=== PATIENT | male | born 1980 | race Caucasian/White ===

== ENCOUNTER 2019-10-20 11:53 | Emergency (ER) | payer MEDICAID ==
[~2019-10-20] VITALS: Ht 172.7 cm; Wt 94.8 kg
[2019-10-20 11:56] VITALS: Ht 172.7 cm; Wt 94.8 kg
[2019-10-20 14:18] VITALS: BP 159/98
== END 2019-10-20 14:18 | disposition home or self-care (01) ==
LOC: ED 11:53
DX: K52.9 Noninfective gastroenteritis and colitis, unspecified (principal)
CPT/HCPCS: 87804; J1885; J7030

== ENCOUNTER 2019-12-04 10:50 | Emergency (ER) | payer MEDICAID ==
[~2019-12-04] VITALS: Ht 172.7 cm; Wt 96.6 kg
[2019-12-04 11:01] VITALS: Ht 172.7 cm; Wt 96.6 kg
[2019-12-04 11:59] LABS: BASOPHIL % 0.8 % (0-2); PLATELET COUNT 245 x10^3mcL (130-400); RED CELL DISTRIBUTION WIDTH 13.4 % (11.5-14.5)
[2019-12-04 12:27] LABS: AMPHETAMINE QUAL UR NONE DETECTED (See below)
[2019-12-04 12:50] LABS: CALCIUM 8.9 mg/dL (8.5-10.1); CARBON DIOXIDE 22.9 mmol/L (21-32); CHLORIDE SERUM 103 mmol/L (98-107); CREATININE SERUM 0.9 mg/dL (0.7-1.3); GFR1 > 60 mL/min; GLUCOSE SERUM 97 mg/dL (74-106); POTASSIUM SERUM 3.6 mmol/L (3.5-5.1); SODIUM SERUM 136 mmol/L (136-145)
[2019-12-04 12:55] LABS: ALBUMIN 4.1 g/dL (3.4-5.0); ALKALINE PHOSPHATASE 69 U/L (46-116); ALT/SGPT 45 U/L (16-63); AST/SGOT 27 U/L (15-37); BILIRUBIN TOTAL 0.46 mg/dL (0.20-1.00); TOTAL PROTEIN, SERUM 7.7 g/dL (6.4-8.2)
[2019-12-04 14:18] VITALS: BP 135/100
== END 2019-12-04 14:18 | disposition home or self-care (01) ==
LOC: ED 10:50
PROVIDERS: Specialist
DX: I10 Essential (primary) hypertension (principal)
CPT/HCPCS: 36415; 83880; Q0092

== ENCOUNTER 2020-09-04 08:01 | Emergency (ER) | payer MEDICAID ==
[~2020-09-04] VITALS: Ht 175.3 cm; Wt 90.7 kg
[2020-09-04 08:17] VITALS: Ht 175.3 cm; Wt 90.7 kg
[2020-09-04 10:18] VITALS: BP 174/116
== END 2020-09-04 10:22 | disposition home or self-care (01) ==
LOC: ED 08:01
DX: R00.2 Palpitations (principal); F41.9 Anxiety disorder, unspecified; F15.10 Other stimulant abuse, uncomplicated; I10 Essential (primary) hypertension
CPT/HCPCS: J7030

== ENCOUNTER 2020-09-25 07:00 | Emergency (ER) | payer MEDICAID ==
[~2020-09-25] VITALS: Ht 175.3 cm; Wt 100.7 kg
[2020-09-25 07:27] VITALS: Ht 175.3 cm; Wt 100.7 kg
[2020-09-25 09:40] VITALS: BP 161/78
== END 2020-09-25 09:40 | disposition home or self-care (01) ==
LOC: ED 07:00
DX: S62.626A Displaced fracture of middle phalanx of right little finger, initial encounter for closed fracture (principal); I10 Essential (primary) hypertension; X50.0XXA Overexertion from strenuous movement or load, initial encounter; Y93.89 Activity, other specified; Y92.89 Other specified places as the place of occurrence of the external cause; Y99.8 Other external cause status

== ENCOUNTER 2020-10-05 09:18 | Emergency (ER) | payer MEDICAID ==
[~2020-10-05] VITALS: Ht 172.7 cm; Wt 98.4 kg
[2020-10-05 09:23] VITALS: Ht 172.7 cm; Wt 98.4 kg
[2020-10-05 12:40] VITALS: BP 161/113
== END 2020-10-05 12:40 | disposition home or self-care (01) ==
LOC: ED 09:18
DX: I10 Essential (primary) hypertension (principal); F41.9 Anxiety disorder, unspecified; F17.210 Nicotine dependence, cigarettes, uncomplicated; F15.10 Other stimulant abuse, uncomplicated; M25.512 Pain in left shoulder
CPT/HCPCS: 99406